=== PATIENT | male | born 1985 | race American Indian/Alaskan Native ===

== ENCOUNTER 2018-05-21 21:40 | Emergency (ER) | payer SELFPAY ==
[2018-05-21 22:01] VITALS: BP 120/54
--- NOTE | 2018-05-21 22:25 | ED PDOC ---
Arrival/HPI - General Chief Complaint: ENT Problem Time Seen by Provider: 05/21/18 22:15 Historian: Patient, Spouse - History of Present Illness Narrative History of Present Illness (Text): 05/21/18 22:22 32 year old male presents to the Emergency department complaining of a sore throat and fever. Patient was evaluated at another Emergency department earlier today and was given one dose of Z-Lon. Patient did not take any antipyretics at home and states his fever has returned. As per , she does "not want to wake up and find him ." Patient denies any chest pain, shortness of breath, nausea, vomiting, diarrhea, urinary symptoms, back pain, neck pain, headache, dizziness, or any other complaints. Time/Duration: < week Symptom Onset: Gradual Symptom Course: Unchanged Context: Home Past Medical History - Provider Review Nursing Documentation Reviewed: Yes - Psychiatric Hx Substance Use: No Family/Social History - Physician Review Nursing Documentation Reviewed: Yes Family/Social History: Unknown Family HX Smoking Status: Never Smoked Hx Alcohol Use: No Hx Substance Use: No Allergies/Home Meds Allergies/Adverse Reactions: Allergies No Known Allergies Allergy (Verified 05/21/18 22:07) Review of Systems - Physician Review All systems were reviewed & negative as marked: Yes - Review of Systems Constitutional: Fevers ENT: Sore Throat Respiratory: absent: SOB Cardiovascular: absent: Chest Pain Gastrointestinal: absent: Diarrhea, Nausea, Vomiting Genitourinary Male: absent: Dysuria Musculoskeletal: absent: Back Pain, Neck Pain Neurological: absent: Headache, Dizziness Physical Exam Vital Signs Reviewed: Yes Vital Signs Temp Pulse Resp BP Pulse Ox 05/21/18 22:00 101.8 F H 109 H 18 120/54 L 97 Temperature: Febrile Blood Pressure: Hypertensive Pulse: Tachycardic Respiratory Rate: Normal Appearance: Positive for: Non-Toxic, Comfortable, Other (Obese) Pain Distress: None Mental Status: Positive for: Alert and Oriented X 3 - Systems Exam Head: Present: Atraumatic, Normocephalic Pupils: Present: PERRL Extroacular Muscles: Present: EOMI Conjunctiva: Present: Normal Mouth: Present: Moist Mucous Membranes Pharnyx: Present: EXUDATE, Other (Pharyngitis) Neck: Present: Other (cervical nodes) Respiratory/Chest: Present: Clear to Auscultation, Good Air Exchange. No: Respiratory Distress, Accessory Muscle Use Cardiovascular: Present: Regular Rate and Rhythm, Normal S1, S2. No: Murmurs Abdomen: No: Tenderness, Distention, Peritoneal Signs Back: Present: Normal Inspection Upper Extremity: Present: Normal Inspection. No: Cyanosis, Edema Lower Extremity: Present: Normal Inspection. No: Edema Neurological: Present: GCS=15, CN II-XII Intact, Speech Normal Skin: Present: Warm, Dry, Normal Color. No: Rashes Psychiatric: Present: Alert, Oriented x 3, Normal Insight, Normal Concentration Medical Decision Making ED Course and Treatment: 05/21/18 22:28 Impression: 32 year old male presents to the Emergency department complaining of sore throat and fever Differential Diagnosis included but are not limited to: strep throat vs. pharyngitis Plan: -- Rapid strep test -- Tylenol -- Reassess and disposition Progress Notes: - Lab Interpretations Lab Results: Lab Results 05/21/18 21:50: Grp A Beta Strep Ag Negative - Medication Orders Current Medication Orders: Discontinued Medications Acetaminophen (Tylenol 325mg Tab) 975 mg PO STAT STA Stop: 05/21/18 22:25 Last Admin: 05/21/18 22:25 Dose: 975 mg MAR Pain/Vitals Document 05/21/18 22:25 RENE (Rec: 05/21/18 22:27 [id number]) Pain Reassessment Is This A Pain ReAssessment? No Acetaminophen (Tylenol 325mg Tab) 975 mg PO STAT STA Stop: 05/21/18 22:21 - Scribe Statement The provider has reviewed the documentation as recorded by the Vicky Julien Provider Scribe Attestation: All medical record entries made by the Scribsacha were at my direction and personally dictated by me. I have reviewed the chart and agree that the record accurately reflects my personal performance of the history, physical exam, medical decision making, and the department course for this patient. I have also personally directed, reviewed, and agree with the discharge instructions and disposition. Disposition/Present on Arrival - Present on Arrival Any Indicators Present on Arrival: No History of DVT/PE: No History of Uncontrolled Diabetes: No Urinary Catheter: No History of Decub. Ulcer: No History Surgical Site Infection Following: None - Disposition Have Diagnosis and Disposition been Completed?: Yes Diagnosis: Pharyngitis, Fever Disposition: HOME/ ROUTINE Disposition Time: 22:41 Patient Plan: Discharge Condition: GOOD Discharge Instructions (ExitCare): Sore Throat, Adult (DC), Bacterial Upper Respiratory Infection, Adult (DC) Additional Instructions: Serafin- Your Rapid strep was negative but the throat culture is pending and will take about 48 hours. Continue the Zithromax but expect the fever to come and go for the next 48 to 72 hours. Treat your fever with tylenol, joint aches, headaches , and myalgias with motrin. Follow up with your doctor later this week. Best- Dr. Ryan Garza Forms: [facility] ([place]), WORK NOTE, SCHOOL NOTE
[2018-05-21 22:55] VITALS: PULSE 88; RESP 16; TEMP 99.5; O2SAT 99
== END 2018-05-21 22:56 | disposition home or self-care (01) ==
LOC: MERGE 21:40 → ED 21:40
DX: J02.9 Acute pharyngitis, unspecified (principal); R50.9 Fever, unspecified

== ENCOUNTER 2018-10-17 17:31 | Emergency (ER) | payer OTHER ==
--- NOTE | 2018-10-17 18:36 | CT ---
Date of service: 10/17/2018 PROCEDURE: CT HEAD WITHOUT CONTRAST. HISTORY: pain behind right eye COMPARISON: None available. TECHNIQUE: Axial computed tomography images were obtained through the head/brain without intravenous contrast. Radiation dose: Total exam DLP = 998.18 mGy-cm. This CT exam was performed using one or more of the following dose reduction techniques: Automated exposure control, adjustment of the mA and/or kV according to patient size, and/or use of iterative reconstruction technique. FINDINGS: HEMORRHAGE: No intracranial hemorrhage. BRAIN: No mass effect or edema. The parada-white matter differentiation appears intact. Small bulbous like 5 mm vascular structure is noted within the right aspect of the suprasellar cistern (series 4, image 17), it is unclear if this is related to volume averaging however a small aneurysm cannot be excluded. Recommend correlation with MRA or CTA. VENTRICLES: No hydrocephalus. CALVARIUM: Unremarkable. PARANASAL SINUSES: Mucosal thickening of the ethmoid air cells and partial opacification of the right frontal sinus. Mild mucosal thickening of the right maxillary sinus. MASTOID AIR CELLS: Unremarkable as visualized. No inflammatory changes. OTHER FINDINGS: None. IMPRESSION: Small bulbous like 5 mm vascular structure is noted within the right aspect of the suprasellar cistern, possibly related to volume averaging however a small aneurysm cannot be excluded. Recommend correlation with MRA or CTA. Mucosal thickening of the ethmoid air cells and partial opacification of the right frontal sinus. Mild mucosal thickening of the right maxillary sinus. Correlate clinically for sinusitis. Findings discussed with Abdias Singh on 10/17/18 at 6:31 p.m.
[2018-10-17 19:12] LABS: ALB/GLOB RATIO 1.1 (1.1-1.8); ALT/SGPT 65 U/L (7-56); AST/SGOT 39 U/L (17-59); BLOOD UREA NITROGEN 10 mg/dL (7-21); CALCIUM 9.1 mg/dL (8.4-10.5); GFR NON-AFRICAN AMERICAN > 60
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
[2018-10-17 19:16] LABS: BASO # 0.02 K/mm3 (0.0-2.0); BASO % 0.2 % (0.0-3.0); EOS # 0.2 (0.0-0.7); EOS % 1.9 % (1.5-5.0); GRAN # 3.45 (1.4-6.5); GRAN % 38.9 % (50.0-68.0); HEMOGLOBIN 14.7 g/dL (14.0-18.0); LYMPH # 4.7 (1.2-3.4); LYMPH % 52.9 % (22.0-35.0); MEAN CELL VOLUME 84.6 fl (80.0-105.0); MEAN CORPUSCULAR HEMOGLOBIN 27.9 pg (25.0-35.0); MEAN PLATELET VOLUME 10.5 fl (7.0-11.0); MONO # 0.5 (0.1-0.6); MONO % 6.1 % (1.0-6.0); RBC 5.27 10^6/uL (3.5-6.1); RED CELL DISTRIBUTION WIDTH 14.1 % (11.5-14.5); WHITE BLOOD COUNT 8.9 10^3/uL (4.5-11.0)
[2018-10-17] MEDS ORDERED: Amoxicillin-Clav 875-125 mg Tab PO STA (21:33)
[2018-10-17 22:08] VITALS: BP 122/71; PULSE 72; RESP 17; TEMP 98; O2SAT 99
--- NOTE | 2018-10-18 12:04 | CT ---
Date of service: 10/17/2018 PROCEDURE: CT Angiography of the neck with contrast HISTORY: possible anuerysm COMPARISON: None. TECHNIQUE: Contiguous axial images of the neck were obtained from the level of the skull-base to the superior mediastinum in the arteriographic phase of enhancement. Coronal and sagittal reformats or also generated. IV contrast dose: 150 cc of Omni 350 Radiation dose: Total exam DLP = 687.89 mGy-cm. This CT exam was performed using one or more of the following dose reduction techniques: Automated exposure control, adjustment of the mA and/or kV according to patient size, and/or use of iterative reconstruction technique. FINDINGS: RIGHT CAROTID ARTERIES: Common Carotid Artery: Normal. Carotid Bifurcation: Normal. Internal Carotid Artery:Normal. External Carotid Artery (proximal branches): Normal. LEFT CAROTID ARTERIES: Common Carotid Artery: Normal. Carotid Bifurcation: Normal. Internal Carotid Artery:Normal. External Carotid Artery (proximal branches): Normal. VERTEBRAL ARTERIES: Right Vertebral Artery: Normal. Left Vertebral Artery: Normal. OTHER FINDINGS: no aortic atherosclerotic calcification or mural plaque present. IMPRESSION: Normal CT Angiography of the neck. CT Angiography of the Brain. HISTORY: possible anuerysm COMPARISON: None available. TECHNIQUE: CT angiography of the intracranial arteries was performed. Coronal and sagittal maximum intensity projection reformated images were generated. Radiation dose: Total exam DLP = 687.89 mGy-cm. This CT exam was performed using one or more of the following dose reduction techniques: Automated exposure control, adjustment of the mA and/or kV according to patient size, and/or use of iterative reconstruction technique. FINDINGS: INTERNAL CEREBRAL ARTERIES: Unremarkable. The skull base, petrous, cavernous and supraclinoid segments are bilaterally widely patent. ANTERIOR CEREBRAL ARTERIES: Unremarkable. A1 and A2 segments are widely patent. Smaller distal branches unremarkable, as visualized. MIDDLE CEREBRAL ARTERIES: Unremarkable. M1 and M2 segments are widely patent. Perisylvian branches grossly symmetric. POSTERIOR CIRCULATION: Basilar Artery: Unremarkable. Distal Vertebral Arteries: Unremarkable. Posterior Cerebral Arteries: Unremarkable. Posterior Inferior Cerebellar Arteries: Unremarkable. ANEURYSM/ VASCULAR MALFORMATIONS: None. OTHER FINDINGS: The report concurs with the preliminary [facility] report IMPRESSION: Unremarkable CT Angiography of the Brain.
== END 2018-10-17 22:07 | disposition home or self-care (01) ==
LOC: ED 17:31
DX: J01.90 Acute sinusitis, unspecified (principal); Z72.0 Tobacco use
CPT/HCPCS: 70450; 70496; 70498; 80053; 85025; 99284; Q9967